=== PATIENT | male | born 1960 | race Caucasian/White ===

== ENCOUNTER → 2022-11-21 14:56 | Outpatient (CLI) | payer OTHER, MEDICAID, SELFPAY ==
--- NOTE | 2022-11-21 14:58 | DI.MRI.S_ITS ---
PROCEDURE: MR THORACIC SPINE WO CON INDICATIONS: ongoing thoracic pain. multilevel spondylosis TECHNIQUE: Noncontrast sagittal T1 spine echo and T2 fast spin echo, sagittal STIR, and T2 fast spin echo through the thoracic spine. COMPARISON: [facility] ([place]), CR, XR THORACIC SPINE 3V, 02/08/2022, 10:58. FINDINGS: Image quality: Excellent. Alignment and Curvature: No spondylolisthesis. Bone Marrow: On STIR images, no acute fracture is identified. Multilevel Modic changes and endplate Schmorl's nodes. Suspected hemangioma at the inferior endplate of T12. Multilevel disc space height loss and desiccation. Spinal Cord: Visualized spinal cord is normal in size and signal. Paraspinous Soft Tissues: No paravertebral abscess or hematoma. Pulmonary findings are not well seen on MRI. Miscellaneous: No high-grade stenosis of the thecal sac. Large wwemp-[id number]-[id number] images of the entire thoracic spine reveal no critical neural foraminal stenosis Small disc bulges are present in the thoracic spine, for example T6-T7, T7-T8, T3-T4, and T2-T3. Trace flattening of the cord at the level of T3-T4 (7/16), T6-T7. IMPRESSION: Jklv-[id number] spondylosis of the thoracic spine without acute edema to suggest fracture. Multilevel endplate deformities are likely degenerative. Small disc bulges are present with mild flattening of the hemicord at T3-T4 and T6-T7. No definite critical stenosis identified on these large gqsap-lc-ugxc images. Dictated by: Garry Cano M.D. on 11/21/2022 at 20:28 Approved by: Garry Cano M.D. on 11/21/2022 at 20:33
== END ==
PROVIDERS: PCP Physician Assistant; Referring Provider Physician Assistant; Visit Provider Physician Assistant
DX: M47.814 Spondylosis without myelopathy or radiculopathy, thoracic region (principal); M51.34 Other intervertebral disc degeneration, thoracic region
CPT/HCPCS: 72146

== ENCOUNTER → 2022-12-05 15:03 | Outpatient (CLI) | payer OTHER, MEDICAID, SELFPAY ==
[2022-12-05 20:16] LABS: Add Manual Diff / Slide Review NO; Basophils Absolute Auto 100 /uL (0-100); Basophils Percent Auto 0.9 % (0-2); Eosinophils Absolute Auto 100 /uL (0-450); Eosinophils Percent Auto 1.8 % (2-4); Hematocrit 31.9 % (41-53); Hemoglobin 9.9 g/dL (13.5-17.5); Lymphocytes Absolute Auto 1500 /uL (1100-4500); Mean Corpuscular HGB Conc 31.1 % (30-36); Mean Corpuscular Hemoglobin 20.3 PG (26-34); Mean Corpuscular Volume 65.1 fL (80-100); Monocytes Absolute Auto 500 /uL (0-900); Monocytes Percent Auto 7.2 % (3-14); Neutrophils Absolute Auto 4800 /uL (1500-7000); Neutrophils Percent Auto 68.1 % (50-75); Platelet Count 283 X10^3/uL (150-400); Red Blood Cell Count 4.89 X10^6/uL (4.5-5.9); Red Cell Distribution Width 20.6 % (11.6-14.8)
[2022-12-05 20:21] LABS: Alanine Aminotransferase 13 IU/L (<50); Alkaline Phosphatase 99 U/L (38-126); Aspartate Aminotransferase 14 IU/L (17-59); BUN Creatinine Ratio 12.6 (6-22); Bilirubin Total 0.7 mg/dL (0.2-1.3); Blood Urea Nitrogen 21 mg/dL (9-20); Calcium 9.1 mg/dL (8.4-10.2); Carbon Dioxide 23 mmol/L (22-32); Chloride 103 mmol/L (98-107); Estimated Glomerular Filt Rate 46 mL/min (>60); Glucose 97 mg/dL (80-110); HEMOLYSIS < 15 (0-50); Potassium 4.2 mmol/L (3.4-5.1); Sodium 138 mmol/L (137-145); Total Protein 7.7 g/dL (6.3-8.2)
[2022-12-05 20:50] LABS: TSH w/ Reflex to FT4 1.02 uIU/mL (0.47-4.68)
[2022-12-05 21:00] LABS: Hypochromasia 2+; Microcytosis 2+
[2022-12-06 12:54] LABS: HEMOLYSIS < 15 (0-50); Iron 38 ug/dL (49-181)
[2022-12-06 13:04] LABS: Percent Iron Saturation 8 % (20-50); Total Iron Binding Capacity 470 ug/dL (261-462); Transferrin 364 mg/dL (206-381)
[2022-12-06 13:28] LABS: Prostate Specific Antigen Scrn 0.884 ng/mL (0.1-4.0)
[2022-12-06 13:32] LABS: Ferritin 7 ng/mL (18-464)
[2022-12-08 15:56] LABS: Albumin 3.8 g/dL (3.5-5.0); Globulin 3.9 g/dL (1.7-4.1)
== END ==
PROVIDERS: PCP Physician Assistant; Visit Provider Physician Assistant
DX: F95.9 Tic disorder, unspecified (principal); G89.29 Other chronic pain; M54.9 Dorsalgia, unspecified; Z13.220 Encounter for screening for lipoid disorders; Z79.899 Other long term (current) drug therapy
CPT/HCPCS: 80053; 82728; 83540; 83550; 84443; 85025; G0103

== ENCOUNTER → 2022-12-07 15:06 | Outpatient (CLI) | payer OTHER, MEDICAID, SELFPAY ==
[2022-12-11 16:18] LABS: Fecal Immunochemical Test Negative (Negative)
== END ==
PROVIDERS: PCP Physician Assistant; Visit Provider Physician Assistant
DX: D64.9 Anemia, unspecified (principal)
CPT/HCPCS: 82274

== ENCOUNTER → 2022-12-12 11:35 | Outpatient (CLI) | payer OTHER, MEDICAID, SELFPAY ==
[2022-12-12 19:25] LABS: Add Manual Diff / Slide Review NO; Basophils Absolute Auto 0 /uL (0-100); Basophils Percent Auto 0.3 % (0-2); Eosinophils Absolute Auto 200 /uL (0-450); Eosinophils Percent Auto 2.6 % (2-4); Hemoglobin 9.8 g/dL (13.5-17.5); Lymphocytes Absolute Auto 1500 /uL (1100-4500); Lymphocytes Percent Auto 23.8 % (25-40); Mean Corpuscular HGB Conc 30.7 % (30-36); Mean Corpuscular Hemoglobin 20.6 PG (26-34); Mean Corpuscular Volume 67.2 fL (80-100); Monocytes Absolute Auto 500 /uL (0-900); Monocytes Percent Auto 8.3 % (3-14); Neutrophils Absolute Auto 4100 /uL (1500-7000); Platelet Count 268 X10^3/uL (150-400); Red Blood Cell Count 4.76 X10^6/uL (4.5-5.9); Red Cell Distribution Width 20.7 % (11.6-14.8); White Blood Cell Count 6.4 X10^3/uL (4.5-11.0)
[2022-12-12 19:36] LABS: Cholesterol 233 mg/dL (140-199); HDL Cholesterol 49 mg/dL (40-60); LDL Cholesterol Calculated 155 mg/dL (<100); Triglycerides 143 mg/dL (35-150)
[2022-12-12 19:38] LABS: Anisocytosis 2+; Microcytosis 2+; Poikilocytosis 1+
[2022-12-12 20:25] LABS: Vitamin B12 264 pg/mL (239-931)
== END ==
PROVIDERS: PCP Physician Assistant; Visit Provider Physician Assistant
DX: D64.9 Anemia, unspecified (principal); F95.9 Tic disorder, unspecified; Z13.220 Encounter for screening for lipoid disorders; Z79.899 Other long term (current) drug therapy
CPT/HCPCS: 80061; 82607; 85025

== ENCOUNTER → 2023-02-27 12:00 | Outpatient (CLI) | payer OTHER, MEDICAID, SELFPAY ==
[2023-02-27 20:15] LABS: Basophils Absolute Auto 100 /uL (0-100); Basophils Percent Auto 0.9 % (0-2); Eosinophils Absolute Auto 100 /uL (0-450); Eosinophils Percent Auto 1.8 % (2-4); Hematocrit 36.5 % (41-53); Hemoglobin 11.7 g/dL (13.5-17.5); Lymphocytes Absolute Auto 1600 /uL (1100-4500); Lymphocytes Percent Auto 25.5 % (25-40); Mean Corpuscular Hemoglobin 24.6 PG (26-34); Mean Corpuscular Volume 76.7 fL (80-100); Monocytes Absolute Auto 400 /uL (0-900); Neutrophils Absolute Auto 4100 /uL (1500-7000); Neutrophils Percent Auto 65.8 % (50-75); Platelet Count 214 X10^3/uL (150-400); Red Blood Cell Count 4.76 X10^6/uL (4.5-5.9); Red Cell Distribution Width 23.6 % (11.6-14.8); White Blood Cell Count 6.2 X10^3/uL (4.5-11.0)
[2023-02-27 20:16] LABS: Add Manual Diff / Slide Review SLIDE REVIEW
[2023-02-27 20:19] LABS: HEMOLYSIS < 15 (0-50); Iron 48 ug/dL (49-181)
[2023-02-27 20:23] LABS: Alanine Aminotransferase 15 IU/L (<50); Albumin 3.7 g/dL (3.5-5.0); Albumin Globulin Ratio 1.1 (1.0-2.8); Alkaline Phosphatase 74 U/L (38-126); Aspartate Aminotransferase 16 IU/L (17-59); BUN Creatinine Ratio 12.4 (6-22); Bilirubin Total 0.5 mg/dL (0.2-1.3); Blood Urea Nitrogen 20 mg/dL (9-20); Calcium 8.8 mg/dL (8.4-10.2); Carbon Dioxide 25 mmol/L (22-32); Chloride 106 mmol/L (98-107); Estimated Glomerular Filt Rate 48 mL/min (>60); Globulin 3.5 g/dL (1.7-4.1); Glucose 104 mg/dL (80-110); HEMOLYSIS < 15 (0-50); Potassium 4.1 mmol/L (3.4-5.1); Sodium 140 mmol/L (137-145); Total Protein 7.2 g/dL (6.3-8.2)
[2023-02-27 20:31] LABS: Percent Iron Saturation 13 % (20-50); Total Iron Binding Capacity 376 ug/dL (261-462); Transferrin 281 mg/dL (206-381)
[2023-02-27 20:48] LABS: Ferritin 12 ng/mL (18-464)
[2023-02-27 20:52] LABS: Anisocytosis 2+; Microcytosis 1+
== END ==
PROVIDERS: PCP Physician Assistant; Visit Provider Physician Assistant
DX: D50.9 Iron deficiency anemia, unspecified (principal); Z79.899 Other long term (current) drug therapy
CPT/HCPCS: 80053; 82728; 83540; 83550; 85025

== ENCOUNTER 2023-03-06 08:44 | Outpatient (CLI) | payer OTHER, MEDICAID, SELFPAY ==
[2023-03-06] VITALS (9 sets, daily range): BP systolic 124–152; BP diastolic 74–94; PULSE 60–80; RESP 16–20; TEMP 36.8; O2SAT 99–100
--- NOTE | 2023-03-06 08:49 | DI.RAD.S_ITS ---
PROCEDURE: PAIN C/T INTERLAMINAR INJECT INDICATIONS: SPINAL STENOSIS COMPARISON: [facility] ([facility]), CR, XR CERVICAL SPINE 2V OR 3V, 12/05/2022, 15:05. [facility], , MR THORACIC SPINE WO CON, 11/21/2022, 15:06. FINDINGS: Fluoroscopic spot filming was performed to verify placement of a spinal needle at the T6-T7 level, as labeled on the films. Appropriate location of the needle tip was confirmed by injection of iodinated contrast. IMPRESSION: No significant intraprocedural abnormality. Dictated by: Alex Rothman M.D. on 03/06/2023 at 11:50 Approved by: Alex Rothman M.D. on 03/06/2023 at 11:50
[2023-03-06] MEDS: MIDAZOLAM 2 MG/2 ML VIAL IV (10:08)
[2023-03-06] MEDS: IOPAMIDOL 15 ML VIAL 3 ML INJ (10:12)
[2023-03-06] MEDS: DEXAMETHASONE 10 MG/ML VIAL 30 MG INJ (10:13)
[2023-03-06] MEDS: BUPIVACAINE 0.25% (PF) VIAL 5 ML SUBCUT (10:13)
--- NOTE | 2023-03-06 10:30 | PM.PROC.IR.1 ---
Date/Time/Diagnoses Date of procedure: 03/06/23 Time of procedure: 10:30 Pre-procedure diagnosis: Thoracic stenosis with HNP Post-procedure diagnosis: same Procedure Notes Procedure: Fluoroscopic guided, contrast controlled T6/7 translaminar epidural steroid injection with conscious sedation. Indications: The patient is referred by PAC Pittman for treatment of thoracic DDD/DJD with radiculopathy Physician: Killian Lundy Total Fluoroscopy time (seconds): 17 Total sedation minutes: 18 Complications: none Procedure in detail & Post-procedure care: DESCRIPTION OF PROCEDURE Fluoroscopic guided, contrast controlled T6/7 translaminar epidural steroid injection with conscious sedation. Following review of allergy review potential side effects and complications, including, but not necessarily limited to, infection, allergic reaction, local tissue breakdown, temporary as well as permanent nerve injury, stroke, paralysis and possible , the patient indicated that they understood and agreed to proceed. An informed consent document was signed by the patient, witnessed by the nurse, and placed in the patient's chart. Additionally other treatment options including modalities, medications and physical therapy were reviewed with the patient. After review of previous anaesthesic history and IV conscious sedation the patient was deemed safe to proceed with today's procedure with IV conscious sedation as ASA class II designation. Safety time-out was performed to confirm patient ID, procedure to be performed and site of procedure. IV sedation was accomplished with a combination of 2mg of Versed administered by the RN after DO order, titrated to patient comfort during the course of the procedure while the patient remained responsive to all verbal commands In the prone position, following sterile prep and drape of the thoracic region the T6/7 translaminar space was identified fluoroscopically. The skin was anesthetized via 25 gauge 1.5inch needle with 1% lidocaine solution. At this point a 22gauge epidural needle was atraumatically introduced and advanced under fluoroscopic guidance into the region of the T6/7 translaminar space depth was confirmed on lateral view. Radiographic data, including multiple fluoroscopic views of the thoracic spine, reveals spinal needle at the T6/7 translaminar space. Lateral views then showed the placement of the needle in the epidural space. Subsequent view show contrast material flowing superiorly and inferiorly in the epidural space. No vascular or intrathecal uptake is observed. At this point using loss of resistance technique with saline and the epidural space was entered. This was confirmed followed negative aspiration and injection of approximately 1.5cc of Isovue 200 showed excellent epidural flow without vascular or intrathecal uptake. At this point, 1cc of 1% lidocaine solution was admitted as a test dose and the patient was observed for an appropriate period of time without signs or symptoms of complications, including abdominal pain, shortness of breath, bilateral upper and lower extremity weakness, nausea and vomiting, prior to steroid injection. Subsequently, 3cc or 30mg of dexamethasone was then injected without incident. The patient tolerated the procedure well without signs of complications and subsequently was transferred to the recovery room for further monitoring. The patient was then transferred to the recovery area with their observed for an appropriate time after the injection. Patient reported a VAS score of 7 prior to the procedure and post-procedure VAS of 2.
== END 2023-03-06 11:21 | disposition home or self-care (01) ==
PROVIDERS: PCP Physician Assistant; Referring Provider Physical Medicine & Rehabilitation; Visit Provider Physical Medicine & Rehabilitation
DX: M51.14 Intervertebral disc disorders with radiculopathy, thoracic region (principal); M48.04 Spinal stenosis, thoracic region; M47.24 Other spondylosis with radiculopathy, thoracic region
CPT/HCPCS: 62321; 99152; J1100; J2250; J3490